=== PATIENT | female | born 1970 | race Caucasian/White ===

== ENCOUNTER 2017-05-24 11:37 | Emergency (ER) | payer BC, MEDICAID ==
[~2017-05-24] VITALS: Ht 152.4 cm; Wt 62.6 kg
[2017-05-24 11:49] VITALS: BP 149/87
--- NOTE | 2017-05-24 12:34 | PHYS DOC ---
Past Medical History Past Medical History: Other Additional Past Medical Histor: TOXIC EPIDERMAL NECROLYSIS Past Surgical History: Other Additional Past Surgical Histo: SKIN GRAFTING Alcohol Use: None Drug Use: None Adult General Chief Complaint Chief Complaint: LOWEREXTREMITY INJURY [facility] HPI Patient is a 46 year old female presents to the emergency department stating that a retaining wall fell on her left ankle and leg last month. Patient states that she had been seen by her primary care physician Dr. Arambula in which they did x-rays of. She states that they told her they were unable to identify any fractures due to the fact there is too much swelling. Patient states that she's been taking Aleve and she has been having the leg elevated. Patient states that her ankle gave out on her yesterday. She has been having it elevated as well as ice packs on it with no progress noted. Patient denies any numbness or tingling into the toes. Review of Systems Review of Systems Constitutional: Denies fever or chills [] Eyes: Denies change in visual acuity, redness, or eye pain [] HENT: Denies nasal congestion or sore throat [] Respiratory: Denies cough or shortness of breath [] Cardiovascular: No additional information not addressed in HPI [] GI: Denies abdominal pain, nausea, vomiting, bloody stools or diarrhea [] : Denies dysuria or hematuria [] Musculoskeletal: Denies back pain left ankle pain and discomfort Integument: Denies rash or skin lesions [] Neurologic: Denies headache, focal weakness or sensory changes [] Endocrine: Denies polyuria or polydipsia [] All other systems were reviewed and found to be within normal limits, except as documented in this note. Allergies Allergies Allergies Coded Allergies Type Severity Reaction Last Updated Verified fentanyl Allergy Severe Rash 05/24/17 Yes Physical Exam Physical Exam Constitutional: Well developed, well nourished, no acute distress, non-toxic appearance. [] HENT: Normocephalic, atraumatic, bilateral external ears normal, oropharynx moist, no oral exudates, nose normal. [] Eyes: PERRLA, EOMI, conjunctiva normal, no discharge. [] Neck: Normal range of motion, no tenderness, supple, no stridor. [] Cardiovascular:Heart rate regular rhythm, no murmur [] Lungs & Thorax: Bilateral breath sounds clear to auscultation [] Abdomen: Bowel sounds normal, soft, no tenderness, no masses, no pulsatile masses. [] Skin: Warm, dry, no erythema, no rash. Patient with abrasion noted on her left lower leg Back: No back tenderness, no CVA tenderness. [] Extremities: Right ankle and foot tenderness, no cyanosis, no clubbing, ROM intact, no edema. No discoloration noted slight swelling noted. Peripheral pulses 2+ cap refill brisk less than 2 seconds. Patient is able to move her toes with no difficulty. Neurologic: Alert and oriented X 3, normal motor function, normal sensory function, no focal deficits noted. [] Psychologic: Affect normal, judgement normal, mood normal. [] Current Patient Data Vital Signs Vital Signs Date Time Temp Pulse Resp B/P (MAP) Pulse Ox O2 Delivery O2 Flow Rate FiO2 05/24/17 11:49 97.7 108 22 97 Room Air 97.7 EKG EKG [] Radiology/Procedures Radiology/Procedures [][facility] [address] [place] [address] IMAGING REPORT Signed PATIENT: NEHEMIAH GALVEZ ACCOUNT: [id number] : 1970 LOCATION: ER AGE: 46 SEX: F EXAM STATUS: REG ER ORD. PHYSICIAN: RAQUEL DOBBINS APRN REASON: left ankle gave out PROCEDURE: ANKLE LEFT 3V Three-view left ankle study History: Left ankle pain. Ankle gave out. Findings: No acute fracture or dislocation or osteolytic process is seen. The mortise ankle joint is intact. IMPRESSION: No acute fracture. DICTATED and SIGNED BY: ROBERT STONE MD DATE: 05/24/17 1246 CC: RAQUEL DOBBINS APRN; [facility] ~ Course & Med Decision Making Course & Med Decision Making Pertinent Labs and Imaging studies reviewed. (See chart for details) Patient has been noted to be sitting on the ER cart with left leg pain down while playing a game on her phone. X-ray negative for bony abnormality by radiologist. Wear the ricki wrap for the next 5-7 days, Wear the air stirrup splint for the next 7-10 days. Ice packs on 20 minutes and off 20 minutes several times a day. Elevation as much as possible. Continue to use Aleve for pain and discomfort. Followup with orthopedic in 1 week. Signs and symptoms to return to the emergency department have been provided. All questions and concerns have been answered at patients bedside. [] Dragon Disclaimer Dragon Disclaimer This electronic medical record was generated, in whole or in part, using a voice recognition dictation system. Departure Departure Impression: Primary Impression: Left ankle pain Disposition: HOME, SELF-CARE Condition: STABLE Referrals: ZACHARIAH HOU (PCP) Patient Instructions: Ankle Pain, RICE - Routine Care for Injuries, Easy-to- Read Additional Instructions: X-rays were negative per radiologist Wear the ricki wrap for the next 5-7 days Wear the air stirrup splint for the next 7-10 days Ice packs on 20 minutes and off 20 minutes several times a day Elevation as much as possible Followup with orthopedic in 1 week Return to emergency department as needed for signs and symptoms that become worse. Problem Qualifiers Primary Impression: Left ankle pain Chronicity: unspecified Qualified Codes: M25.572 - Pain in left ankle and joints of left foot RAQUEL DOBBINS DRAPERY ROD ASSEMBLER May 24, 2017 12:34
--- NOTE | 2017-05-24 12:51 | RAD ---
Three-view left ankle study History: Left ankle pain. Ankle gave out. Findings: No acute fracture or dislocation or osteolytic process is seen. The mortise ankle joint is intact. IMPRESSION: No acute fracture.
== END 2017-05-24 13:20 | disposition home or self-care (01) ==
LOC: ER 11:37
DX: M25.572 Pain in left ankle and joints of left foot (principal); Z88.4 Allergy status to anesthetic agent
CPT/HCPCS: 29515; 73610; 99284-25